=== PATIENT | male | born 2000 ===

== ENCOUNTER 2022-10-24 17:04 | Emergency (ER) | payer SELFPAY ==
[~2022-10-24] VITALS: Ht 172.7 cm; Wt 72.7 kg
[2022-10-24 17:08] VITALS: BP 127/84
== END 2022-10-24 18:45 | disposition left against medical advice (07) ==
LOC: EMS 17:07
DX: R06.02 Shortness of breath (principal); R42 Dizziness and giddiness; R11.0 Nausea; Z53.21 Procedure and treatment not carried out due to patient leaving prior to being seen by health care provider